=== PATIENT | male | born 1955 | race American Indian/Alaskan Native ===

== ENCOUNTER 2018-09-01 15:59 | Observation (INO) | payer BC ==
[2018-09-01 16:25] LABS: CHLORIDE,CL 104 mEq/L (98-106); SODIUM,NA 140 mEq/L (136-145)
[2018-09-01] MEDS ORDERED: Acetaminophen 325 MG Tab PO PRN (18:07)
[2018-09-01] MEDS ORDERED: Albuterol 0.083% 2.5 MG/3 ML Neb Soln NEB PRN (18:07)
[2018-09-01] MEDS ORDERED: HYDROCORTISONE 5 MG PO SCH (18:15)
[2018-09-01] MEDS ORDERED: Sodium Chloride 0.9% 1,000 ML IV SCH (18:15)
[2018-09-01] MEDS ORDERED: Hydrochlorothiazide 12.5 MG Cap PO SCH (20:00)
[2018-09-01] MEDS: Ibuprofen 200 MG Tab PO PRN (20:07)
[2018-09-01] MEDS: Oseltamivir 75 MG Cap PO SCH (20:07)
[2018-09-01] MEDS: Pregabalin 50 MG Cap PO SCH (20:11)
[2018-09-01] MEDS: Codeine/Promethazine 10-6.25 MG/5 ML Syrup 5 ML UD Cup PO PRN (21:21)
[2018-09-02] MEDS: Ibuprofen 200 MG Tab PO PRN ×2 (04:56→18:02)
[2018-09-02] MEDS ORDERED: Pantoprazole 40 MG Tab.CR PO SCH (07:00)
[2018-09-02] MEDS ORDERED: ENALAPRIL 5 MG PO SCH (08:00)
[2018-09-02] MEDS ORDERED: Fenofibrate 160 MG Tab PO SCH (08:00)
[2018-09-02] MEDS: OMEPRAZOLE 20 MG PO SCH (08:00)
[2018-09-02] MEDS: ENALAPRIL 10 MG PO SCH (08:00)
[2018-09-02] MEDS: HYDROCORTISONE 10 MG PO SCH ×2 (08:00→18:02)
[2018-09-02] MEDS: FENOFIBRATE 145 MG PO SCH (08:00)
[2018-09-02] MEDS: HYDROCHLOROTHIAZIDE 12.5 MG PO SCH ×2 (08:00→17:18)
[2018-09-02] MEDS: HYDROCORTISONE 5 MG PO SCH (08:00)
[2018-09-02] MEDS: Oseltamivir 75 MG Cap PO SCH ×2 (08:00→20:03)
--- NOTE | 2018-09-02 11:05 | PN ---
DATE: 09/02/2018 S: Adam is a 63-year-old male, who was initially seen in clinic yesterday, who was admitted to the hospital with influenza A. He states he had an uneventful night. Denies any chest pain. No new onset of any shortness of breath. He states he continues to have a pretty harsh cough. He does get some relief with the cough medicine that is prescribed. Finally, he did get a little bit of rest last night. No current concerns today. O: VITAL SIGNS: Blood pressure is 126/82, respiratory rate of 20, O2 is 95% on room air, pulse of 69. Temperature, he did run a little bit of temperature of 100.7 around 4 o'clock this morning and was given Tylenol and then did break his temperature. GENERAL: Pleasant cooperative male. He was sleeping comfortably upon my entrance into his room. He does not appear to be in any acute distress at this point in time. HEENT: Grossly unremarkable. LUNGS: Clear to auscultation. They are improved from yesterday. CARDIAC: Regular rate and rhythm. No murmurs, gallops, or rubs. ABDOMEN: Soft. Bowel sounds are present. Normoactive. No organomegaly. No guarding or rigidity. SKIN: Uniformly pink. Warm and dry. No pedal edema noted. ASSESSMENT: INFLUENZA A. P: We will discontinue IV fluids along with the telemetry today. I will encourage him to drink oral fluids. We will continue to give him Tamiflu today. I did discuss with him we will re-evaluate tomorrow for possible discharge, which he did verbalize understanding. UNIQUE/CITLALY /[id number]
[2018-09-02] MEDS: Codeine/Promethazine 10-6.25 MG/5 ML Syrup 5 ML UD Cup PO PRN ×2 (11:57→18:02)
[2018-09-02] MEDS: Pregabalin 50 MG Cap PO SCH ×2 (15:09→20:04)
[2018-09-03] MEDS: OMEPRAZOLE 20 MG PO SCH (08:14)
[2018-09-03] MEDS: ENALAPRIL 10 MG PO SCH (08:15)
[2018-09-03] MEDS: HYDROCHLOROTHIAZIDE 12.5 MG PO SCH (08:15)
[2018-09-03] MEDS: FENOFIBRATE 145 MG PO SCH (08:15)
[2018-09-03] MEDS: HYDROCORTISONE 5 MG PO SCH (08:16)
[2018-09-03] MEDS: HYDROCORTISONE 10 MG PO SCH (08:16)
[2018-09-03] MEDS: Oseltamivir 75 MG Cap PO SCH (08:17)
--- NOTE | 2018-09-03 21:54 | PCM.DCSUM1 ---
Discharge Summary - Hospital Course Free Text/Narrative:: Patient presented to clinic to see Skip Joyner for acute onset of increased cough , malaise and fever. Was concerned as is currently on Xarelto for PE. Is awaiting cervical spine surgery as well. Developed fever and malaise 24 hours prior. Temp 102.5 in clinic. WBC 7.0, CRP 2.9. Influenza A positive. Admitted and started on IV fluids, Tamiflu and nebulizer treatments. Diagnosis: Stroke: No Modified [place] Scale: No Symptoms at All Modified [place] Scale Score: 0 - Discharge Data Discharge Date: 09/03/18 Discharge Disposition: Home, Self-Care 01 Condition: Good - Patient Summary/Data Complications: none Hospital Course: Patient is feeling somewhat better. Is now afebrile. Oxygen sats 94-95% on room air. Lung sounds are clear. He does still have generalized achiness yet. Does feel he has better air exchange with nebulizer treatments but admits to feeling jittery after them. Tolerating oral intake. WBC has remained normal. CRP did increase to 6.9, down to 6.6 today Will discharge home. Continue Tamiflu. Rest and push fluids. Use Xopenex inhaler and phenergan with codeine as needed. Follow up with Skip Joyner in one week for recheck. - Patient Instructions Diet: Usual Diet as Tolerated Activity: As Tolerated - Discharge Plan *PRESCRIPTION DRUG MONITORING PROGRAM REVIEWED*: No *COPY OF PRESCRIPTION DRUG MONITORING REPORT IN PATIENT [place]: No Prescriptions/Med Rec: Levalbuterol Tartrate [Xopenex Hfa] 15 gm IH Q4H PRN #1 hfa.aer.ad PRN Reason: Wheezing Oseltamivir [Tamiflu] 75 mg PO BID #6 cap Home Medications: Home Meds Cholecalciferol (Vitamin D3) [Vitamin D3] 4,000 unit PO DAILY 09/01/18 [History] Enalapril Maleate 10 mg PO DAILY 09/01/18 [History] Fenofibrate Nanocrystallized [Fenofibrate] 145 mg PO DAILY 09/01/18 [History] Hydrocortisone 5 mg PO ASDIRECTED 09/01/18 [History] Omeprazole 20 mg PO DAILY 09/01/18 [History] Pregabalin [Lyrica] 50 mg PO ASDIRECTED 09/01/18 [History] Rivaroxaban [Xarelto] 20 mg PO DAILY 09/01/18 [History] hydroCHLOROthiazide [Hydrochlorothiazide] 12.5 mg PO BID 09/01/18 [History] Levalbuterol Tartrate [Xopenex Hfa] 15 gm IH Q4H PRN #1 hfa.aer.ad 09/03/18 [Rx] Oseltamivir [Tamiflu] 75 mg PO BID #6 cap 09/03/18 [Rx] Referrals: Amish Joyner PA-C [Primary Care Provider] - (Follow up with Skip Joyner in one week) - Discharge Summary/Plan Comment DC Time >30 min.: No - General Info Date of Service: 09/03/18 Functional Status: Reports: Pain Controlled, Tolerating Diet, Ambulating - Review of Systems General: Reports: Weakness, Fatigue, Malaise HEENT: Reports: No Symptoms Pulmonary: Reports: Cough, Wheezing. Denies: Shortness of Breath Cardiovascular: Denies: Chest Pain, Edema, Lightheadedness Gastrointestinal: Denies: Abdominal Pain, Nausea, Vomiting Genitourinary: Reports: No Symptoms Musculoskeletal: Reports: Joint Pain Skin: Reports: No Symptoms Neurological: Reports: Weakness - Patient Data Vitals - Most Recent: Last Vital Signs Temp 98.7 F 09/03/18 08:00 Pulse 55 L 09/03/18 08:00 Resp 16 09/03/18 08:00 BP 102/58 L 09/03/18 08:00 Pulse Ox 95 09/03/18 08:00 Weight - Most Recent: 232 lb 9.6 oz Lab Results - Last 24 hrs: Laboratory Results - last 24 hr 09/03/18 09/03/18 Range/Units 05:11 07:10 WBC 2.5 L (5.0-10.0) 10^3/uL RBC 4.91 (4.50-6.00) 10^6/uL Hgb 12.1 L (14.0-18.0) g/dL Hct 39.0 L (40.0-54.0) % MCV 79.4 L (82.0-94.0) fL MCH 24.6 L (27.0-32.0) pg MCHC 31.0 L (33.0-38.0) g/dL RDW Coeff of Osmar 17.2 H (11.0-15.0) % Plt Count 163 (150-400) 10^3/uL Neut % (Auto) 40.7 (35-85) % Lymph % (Auto) 32.9 (10-55) % [place] % (Auto) 23.2 H (0-16) % Eos % (Auto) 2.4 (0-5) % Baso % (Auto) 0.8 (0-3) % Neut # (Auto) 1.00 L (1.80-7.00) 10^3/uL Lymph # (Auto) 0.81 L (1.00-4.80) 10^3/uL [place] # (Auto) 0.57 (0.00-0.80) 10^3/uL Eos # (Auto) 0.06 (0.00-0.45) 10^3/uL Baso # (Auto) 0.02 10^3/uL Sodium 142 (136-145) mEq/L Potassium 3.9 (3.5-5.0) mEq/L Chloride 104 (98-106) mEq/L Carbon Dioxide 30 (21-32) mmol/L BUN 11 (7-18) mg/dL Creatinine 1.3 (0.7-1.3) mg/dL Est Cr Clr Drug Dosing 57.00 mL/min Estimated GFR (MDRD) 56 L (>=60) mL/min Glucose 85 (75-99) mg/dL Calcium 8.6 (8.4-10.1) mg/dL C-Reactive Protein 6.6 H (0.2-0.8) mg/dL Med Orders - Current: Current Medications Discontinued Medications Acetaminophen (Tylenol) 650 mg PO Q4H PRN PRN Reason: Pain (Mild 1-3)/fever Albuterol (Proventil Neb Soln) 2.5 mg NEB Q2H PRN PRN Reason: Shortness Of Breath/wheezing Last Admin: 09/02/18 20:03 Dose: 2.5 mg Enalapril Maleate (Vasotec) 10 mg PO DAILY [facility] Fenofibrate (Fenofibrate) 160 mg PO DAILY [facility] Hydrochlorothiazide (Hydrochlorothiazide) 12.5 mg PO BID [facility] Last Admin: 09/01/18 20:11 Dose: Not Given Hydrochlorothiazide (Hydrochlorothiazide) 12.5 mg PO BIDDIURETIC [facility] Last Admin: 09/03/18 08:15 Dose: 12.5 mg Sodium Chloride (Normal Saline) 1,000 mls @ 75 mls/hr IV ASDIRECTED [facility] Last Admin: 09/01/18 20:07 Dose: 75 mls/hr Ibuprofen (Motrin) 400 mg PO Q6H PRN PRN Reason: Pain (mild 1-3) Last Admin: 09/02/18 18:02 Dose: 400 mg Enalepril 10mg (Patient Own Med) 1 each PO DAILY [facility] Last Admin: 09/03/18 08:15 Dose: 1 each Fenofibrate 145mg (Patient Own Med) 1 each PO DAILY [facility] Last Admin: 09/03/18 08:15 Dose: 1 each Omeprazole 20mg (Patient Own Med) 1 each PO ACBREAKFAST [facility] Last Admin: 09/03/18 08:14 Dose: 1 each Hydrocortisone 10mg (Patient Own Med) 1 each PO BIDMEALS [facility] Last Admin: 09/03/18 08:16 Dose: 1 each Hydrocortisone 5mg * (Patient Own Med) 1 each PO DAILY@0800 [facility] Last Admin: 09/03/18 08:16 Dose: 1 each Oseltamivir Phosphate (Tamiflu) 75 mg PO BID [facility] Last Admin: 09/03/18 08:17 Dose: 75 mg Pantoprazole Sodium (Protonix) 40 mg PO ACBRK [facility] Last Admin: 09/02/18 07:09 Dose: 40 mg Pregabalin (Lyrica) 50 mg PO BID@1400,2100 [facility] Last Admin: 09/02/18 20:04 Dose: Not Given Promethazine HCl/Codeine (Phenergan With Codeine) 10 ml PO Q6H PRN PRN Reason: Cough Last Admin: 09/02/18 18:02 Dose: 10 ml - Exam General: Reports: Alert, Oriented HEENT: Reports: Mucous Membr. Moist/[place] Neck: Reports: Supple Lungs: Reports: Clear to Auscultation, Normal Respiratory Effort Cardiovascular: Reports: Regular Rate, Regular Rhythm GI/Abdominal Exam: Normal Bowel Sounds, Soft, Non-Tender Extremities: Normal Inspection, No Pedal Edema Skin: Reports: Warm, Dry Neurological: Reports: No New Focal Deficit
== END 2018-09-03 10:45 | disposition home or self-care (01) ==
LOC: CC.MS 15:59 → CC.FCMC 15:59 → CC.MS 17:23 → UNDOADMOB 17:23 → CC.MS 18:07 → UNDODISOB 09-03 10:45
PROVIDERS: ADMIT Physician Assistant Medical; ATTEND Family Medicine
DX: J10.1 Influenza due to other identified influenza virus with other respiratory manifestations (principal); I10 Essential (primary) hypertension; E11.9 Type 2 diabetes mellitus without complications; K21.9 Gastro-esophageal reflux disease without esophagitis; Z79.899 Other long term (current) drug therapy
CPT/HCPCS: 36415; 71046; 80048; 85025; 86140; 87804; A9270-GY; G0378; J7030; J7613-GY